=== PATIENT | male | born 1950 | race Caucasian/White ===

== ENCOUNTER 2016-05-12 10:36 | Emergency (ER) | payer MEDICARE ==
[~2016-05-12] VITALS: Ht 177.8 cm; Wt 109.6 kg
[~2016-05-12 10:36] MED LIST: ACTOS30 MG PO; AMOXICILLIN875 MG PO; GLIPIZIDE5 M2 PO; HUMALOG KW50 MG/50 K SC; HUMALOG100 MG/ML SC; HUMULIN R1 M1 SC; LANTUS100 MG/ML SC; METFORMIN1000 MG PO; METFORMIN500 MG PO; TRAMADOL HCL50 MG PO
[2016-05-12] MEDS ORDERED: KEFLEX500 MG PO (13:33)
[2016-05-12 13:57] VITALS: BP 103/59
== END 2016-05-12 13:58 | disposition home or self-care (01) ==
LOC: ED 10:36
PROC: 0HQFXZZ Repair Right Hand Skin, External Approach (ICD-10-PCS; principal; 2016-05-12)
DX: S61.216A Laceration without foreign body of right little finger without damage to nail, initial encounter (principal); W45.8XXA Other foreign body or object entering through skin, initial encounter; W22.8XXA Striking against or struck by other objects, initial encounter; Y93.9 Activity, unspecified; Y92.009 Unspecified place in unspecified non-institutional (private) residence as the place of occurrence of the external cause

== ENCOUNTER 2016-05-19 11:51 | Emergency (ER) | payer MEDICARE ==
[~2016-05-19] VITALS: Ht 177.8 cm; Wt 106.8 kg
[~2016-05-19 11:51] MED LIST changes: +KEFLEX500 MG PO
[2016-05-19] MEDS ORDERED: KEFLEX500 MG PO (12:29)
[2016-05-19 13:26] VITALS: BP 131/89
== END 2016-05-19 13:26 | disposition home or self-care (01) ==
LOC: ED 11:51
DX: S61.216D Laceration without foreign body of right little finger without damage to nail, subsequent encounter (principal)

== ENCOUNTER 2016-10-17 16:23 | Emergency (ER) | payer MEDICARE, OTHER ==
[~2016-10-17] VITALS: Ht 177.8 cm; Wt 115.0 kg
[2016-10-17] MEDS ORDERED: EC-NAPROSYN500 MG PO (16:31)
[2016-10-17 17:04] LABS: HEMATOCRIT 45.4 % (39.0-50.0); HEMOGLOBIN 15.7 g/dl (14.0-18.0); IMMATURE GRANULOCYTES 0.5 % (0.0-1.0); MEAN CORPUSCULAR HGB 29.7 pG CALC (26.0-32.0); MEAN CORPUSCULAR HGB CONC 34.6 g/L CALC (32.0-36.0); NEUT# 3.52 thou/uL (1.82-7.42); RED BLOOD COUNT 5.28 mill/uL (4.70-6.10); RED CELL DISTRI WIDTH 13.1 % (11.5-15.5)
[2016-10-17 17:19] LABS: ALBUMIN 4.6 g/dL (3.2-5.0); ALKALINE PHOSPHATASE 68 u/l (38-126); ANION GAP 18 (6-22 (CALC)); BILIRUBIN, TOTAL 0.7 mg/dL (0.0-1.4); BUN 17 mg/dL (8-23); BUN/CREATININE RATIO 18 (12-20 (CALC)); CALCIUM 9.8 mg/dL (8.4-10.2); CARBON DIOXIDE 24 mmol/l (22-30); CHLORIDE 99 mmol/l (95-108); GFR > 60 ML/MIN (>=60 (CALC)); GFR FOR AFR.AMER. > 60 ML/MIN (>=60 (CALC)); GLUCOSE 256 mg/dL (82-115); POTASSIUM 4.5 mmol/l (3.5-5.1); SGOT/AST 77 u/l (19-48); SGPT/ALT 74 u/l (11-66); SODIUM 137 mmol/l (137-146); TOTAL PROTEIN 8.1 g/dL (6.3-8.2)
[2016-10-17] MEDS ORDERED: ZITHROMAX250 MG PO (17:27)
[2016-10-17] MEDS ORDERED: TESSALON PER100 MG PO (17:27)
[2016-10-17] MEDS ORDERED: PREDNISONE50 MG PO (17:27)
[2016-10-17 17:28] LABS: MYOGLOBIN 307 ng/mL (0 - 121)
[2016-10-17] MEDS ORDERED: VENTOLIN HFA IN (17:43)
[2016-10-17] MEDS ORDERED: ALBUTEROL SUL0.083 % IN (17:43)
[2016-10-17 17:50] VITALS: BP 134/88
== END 2016-10-17 18:30 | disposition home or self-care (01) ==
LOC: ED 16:23
PROVIDERS: Emergency Medicine
DX: J20.9 Acute bronchitis, unspecified (principal); S29.011A Strain of muscle and tendon of front wall of thorax, initial encounter; X58.XXXA Exposure to other specified factors, initial encounter; Y92.009 Unspecified place in unspecified non-institutional (private) residence as the place of occurrence of the external cause; R06.02 Shortness of breath; R07.1 Chest pain on breathing

== ENCOUNTER 2016-10-20 01:51 | Emergency (ER) | payer MEDICARE, OTHER ==
[~2016-10-20] VITALS: Ht 177.8 cm; Wt 112.0 kg
[~2016-10-20 01:51] MED LIST changes: +ALBUTEROL SUL0.083 % IN; +EC-NAPROSYN500 MG PO; +PREDNISONE50 MG PO; +TESSALON PER100 MG PO; +VENTOLIN HFA IN; +ZITHROMAX250 MG PO
[2016-10-20 02:35] LABS: HEMATOCRIT 44.6 % (39.0-50.0); HEMOGLOBIN 15.2 g/dl (14.0-18.0); IMMATURE GRANULOCYTES 0.8 % (0.0-1.0); MEAN CELL VOLUME 86.6 fL CALC (80.0-100.0); MEAN CORPUSCULAR HGB 29.5 pG CALC (26.0-32.0); MEAN CORPUSCULAR HGB CONC 34.1 g/L CALC (32.0-36.0); NEUT# 4.77 thou/uL (1.82-7.42); RED BLOOD COUNT 5.15 mill/uL (4.70-6.10); RED CELL DISTRI WIDTH 13.2 % (11.5-15.5)
[2016-10-20 02:50] LABS: ALBUMIN 4.5 g/dL (3.2-5.0); ALKALINE PHOSPHATASE 67 u/l (38-126); AMYLASE 57 u/l (30-110); ANION GAP 18 (6-22 (CALC)); BILIRUBIN, TOTAL 0.8 mg/dL (0.0-1.4); BUN 20 mg/dL (8-23); BUN/CREATININE RATIO 19 (12-20 (CALC)); CALCIUM 9.7 mg/dL (8.4-10.2); CARBON DIOXIDE 26 mmol/l (22-30); CHLORIDE 100 mmol/l (95-108); CREATININE 1.1 mg/dL (0.7-1.3); GFR > 60 ML/MIN (>=60 (CALC)); GFR FOR AFR.AMER. > 60 ML/MIN (>=60 (CALC)); GLUCOSE 367 mg/dL (82-115); LIPASE 417 u/l (23-300); POTASSIUM 4.3 mmol/l (3.5-5.1); SGOT/AST 69 u/l (19-48); SGPT/ALT 68 u/l (11-66); SODIUM 139 mmol/l (137-146)
[2016-10-20 03:02] LABS: MYOGLOBIN 126 ng/mL (0 - 121)
[2016-10-20 05:13] LABS: URINE BILIRUBIN - DIPSTICK NEGATIVE (NEGATIVE); URINE BLOOD DIPSTICK NEGATIVE (NEGATIVE); URINE CLARITY CLEAR; URINE COLOR YELLOW; URINE GLUCOSE - DIPSTICK >=1000 mg/dL (NEGATIVE); URINE KETONE NEGATIVE (NEGATIVE); URINE LEUK ESTERASE NEGATIVE (NEGATIVE); URINE NITRITE - DIPSTICK NEGATIVE (Negative); URINE PROTEIN - DIPSTICK NEGATIVE (NEG-TRACE); URINE UROBILINOGEN - DIPSTICK 0.2 E.U./dL (0.2)
[2016-10-20] MEDS ORDERED: FLEXERIL PO (05:47)
[2016-10-20 05:51] VITALS: BP 122/70
== END 2016-10-20 06:01 | disposition home or self-care (01) ==
LOC: ED 01:51
PROVIDERS: Emergency Medicine
DX: R07.89 Other chest pain (principal)
CPT/HCPCS: Q9967